=== PATIENT | male | born 1975 | race Caucasian/White ===

== ENCOUNTER 2022-09-06 00:01 | Emergency (ER) | payer SELFPAY ==
[~2022-09-06] VITALS: Ht 182.9 cm; Wt 104.5 kg
[2022-09-06 00:04] VITALS: BP 151/111; TEMP 97.3
[2022-09-06] MEDS ORDERED: AMOXICILLIN 50500 MG PO (00:17)
[2022-09-06 00:24] VITALS: PULSE 71
== END 2022-09-06 00:25 | disposition home or self-care (01) ==
LOC: COL.ER 00:01
DX: K02.9 Dental caries, unspecified (principal); Z28.310 Unvaccinated for COVID-19